=== PATIENT | male | born 1980 | race Caucasian/White ===

== ENCOUNTER 2020-01-09 14:27 | Outpatient (REF) | payer SELFPAY ==
[2020-01-12 20:33] LABS: SARS-CoV-2 RNA Undetected (Undetected); SARS-CoV-2 Specimen Source Nasal
== END 2020-01-09 14:47 ==
LOC: NCHCN 14:27
PROVIDERS: Visit Provider Family Medicine
DX: R05 Cough (principal); Z20.828 Contact with and (suspected) exposure to other viral communicable diseases
CPT/HCPCS: U0003

== ENCOUNTER 2021-09-17 14:12 | Outpatient (REF) | payer OTHER, SELFPAY ==
[2021-09-17 20:38] LABS: ALT 30 U/L (16-63); AST 20 U/L (15-37); Albumin 4.5 g/dL (3.4-5.0); Alkaline Phosphatase 67 U/L (46-116); Anion Gap 9.3 mmol/L (3-11); BUN 12 mg/dL (7-18); Bilirubin, Total 0.9 mg/dL (0.2-1.0); CO2 28.7 mmol/L (21.0-32.0); CREATININE 1.2 mg/dL (0.70-1.30); Calcium 9.4 mg/dL (8.5-10.1); Chloride 102 mmol/L (98-107); Glucose 88 mg/dL (74-106); Potassium 3.9 mmol/L (3.5-5.1); Sodium 140 mmol/L (136-145); Total Protein 7.5 g/dL (6.4-8.2)
== END 2021-09-17 14:13 | disposition home or self-care (01) ==
LOC: NCHCN 14:12
PROVIDERS: Visit Provider Family Medicine
DX: I10 Essential (primary) hypertension (principal); E66.9 Obesity, unspecified
CPT/HCPCS: 80053

== ENCOUNTER 2022-12-03 08:52 | Outpatient (REF) | payer SELFPAY ==
[2022-12-06 14:23] LABS: Helicobacter pylori Ag, Feces Negative (Negative)
== END 2022-12-03 08:53 | disposition home or self-care (01) ==
LOC: NCHCN 08:52
PROVIDERS: PCP Registered Nurse; Visit Provider Registered Nurse
DX: R10.13 Epigastric pain (principal)
CPT/HCPCS: 87338

== ENCOUNTER 2023-04-06 10:43 | Outpatient (REF) | payer OTHER, SELFPAY ==
--- OUTSIDE RECORDS SUMMARY | 2023-04-06 10:45 | XMS_ITS | CCD ---
Author Name Unknown Address [address] [place] [address] [id number] Organization Unknown Address [address], [place] [id number] Care Team Providers Care Progress Worker Name Role Phone DIONY LI Attending Physician [phone] REANNA MITTAL (Secondary) Physician [phone] Vital Signs Unknown or Not Available. Allergies Allergy Code Allergy Type Reaction Status No Known Allergies 0 No known allergies Active Procedures Unknown or Not Available. History of Immunizations Unknown or Not Available. Problems Unknown or Not Available. Results Unknown or Not Available. Active Medications Unknown or Not Available. Medications Administered During Visit Unknown or Not Available. Encounters Encounter Diagnosis Diagnosis Code Start Date Encounter for screening for malignant neoplasm o f colon Z1211 12/08/2021 Social History Smoking Status Code Start Date End Date Never smoker [id number] Patient Decision Aids Unknown or Not Available. Discharge Instructions You were admitted to [facility] on 12/08/2021 03:31 with a principal diagnosis of Encounter for screening for malignant neoplasm of colon You were discharged from [facility] on 12/08/2021 03:32 Should you have any questions prior to discharge, please contact a member of your healthcare team. If you have left the hospital and have any questions, please contact your primary care physician. Chief Complaint and Reason For Visit Unknown or Not Available. Function Status Unknown or Not Available. Plan of Care Unknown or Not Available. Referral/Transition of Care Unknown or Not Available.
--- OUTSIDE RECORDS SUMMARY | 2023-04-06 10:45 | XMS_ITS | CCD ---
Author Name Unknown Address [address] [place] [address] [phone] Organization Unknown Address [address] [place], [place] [id number] Care Team Providers Care Risk Specialist Name Role Phone MER SWANSON Attending Physician [phone] MER SWANSON Rounding (Secondary) Physician [phone] Vital Signs Unknown or Not Available. Allergies [...] Encounters Encounter Diagnosis Diagnosis Code Start Date Follow-up orthopedic assessment [id number] 12/25/2021 Social History Smoking Status Code Start Date End Date Never smoker [id number] Patient Decision Aids Unknown or Not Available. Discharge Instructions You were admitted to [facility] on 12/25/2021 07:45 with a principal diagnosis of Encounter for other orthopedic aftercare You were discharged from [facility] on 12/25/2021 00:00 Should you have any questions prior to [...]
--- OUTSIDE RECORDS SUMMARY | 2023-04-06 10:45 | XMS_ITS | CCD ---
Author Name Unknown Address [address] [place] [address] [phone] Organization Unknown Address [address] [place] [address] [phone] Care Team Providers Care Pattern Lease Inspector Name Role Phone KIA DICK Attending Physician [phone] Vital Signs Vital Sign Value Unit Date/Time Recent/Initial ? 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 Problems Unknown or Not Available. Results Unknown or Not Available. Active Medications Medications Administered During Visit Medication Dose Units Frequency Route Date/Time of Last Dose CEPHALEXIN CAPSULE: 500MG 1000 MG X1 PO 12/17/2021 07:00 ACETAMINOPHEN TABLET: 325MG 975 MG X1 PO 12/17/2021 06:52 CELECOXIB CAPSULE: 100MG 200 MG X1 PO 12/17/2021 06:51 Encounters Encounter Diagnosis Diagnosis Code Start Date Localized swelling, mass and lump, right upper l imb R2231 12/17/2021 Social History Smoking Status Code Start Date End Date Never smoker [id number] Patient Decision Aids Unknown or Not Available. Discharge Instructions You were admitted to [facility] on 12/17/2021 06:31 with a principal diagnosis of Localized swelling, mass and lump, right upper limb You had the following procedures done:Excision, Tumor, Soft Tissue/Vascular Malformation, Of Hand/Finger, Subfascial; 1.5 cm Or Greater You were discharged from [facility] on 12/17/2021 08:30 Should you have any questions prior to [...]
--- OUTSIDE RECORDS SUMMARY | 2023-04-06 10:46 | XMS_ITS | CCD ---
Author Name Unknown Address [address] [place] [address] [phone] Organization Unknown Address [address] [place] [address] [phone] Care Team Providers Care Product Sales Engineer Name Role Phone JENDIONY Attending Physician [phone] Vital Signs Vital Sign Value Unit Date/Time Recent/Initial ? BP Systolic 130 mmHg 12/08/2021 10:46 Initial VS BP Diastolic 83 mmHg 12/08/2021 10:46 Initia l VS Respiratory Rate 13 bpm 12/08/2021 10:46 In itial VS Heart Rate 64 bpm 12/08/2021 10:46 Initial VS BP Systolic 129 mmHg 12/08/2021 10:47 Most Re cent VS BP Diastolic 82 mmHg 12/08/2021 10:47 Most R ecent VS Respiratory Rate 12 bpm 12/08/2021 10:[address] Recent VS Heart Rate 66 bpm 12/08/2021 10:47 Most Rec ent VS O2 % BldC Oximetry 96 % 12/08/2021 10:47 Initial VS Allergies Allergy Code Allergy Type Reaction Status No Known Allergies 0 No known allergies Active Procedures Procedure Code Procedure Type Date Colsc Flx w/[place] [address] CPT 12/08/2021 History of Immunizations Unknown or Not Available. Problems Unknown or Not Available. Results Unknown or Not Available. Active Medications Unknown or Not Available. Medications Administered During Visit Unknown or Not Available. Encounters Encounter Diagnosis Diagnosis Code Start Date Encounter for screening for malignant neoplasm o f colon Z1211 12/08/2021 Social History Smoking Status Code Start Date End Date Never smoker [id number] Patient Decision Aids Unknown or Not Available. Discharge Instructions You were admitted to [facility] on 12/08/2021 09:00 with a principal diagnosis of Encounter for screening for malignant neoplasm of colon You had the following procedures done:Colsc Flx w/Rmvl Of Tumor Polyp Lesion Snare Tq You were discharged from [facility] on 12/08/2021 10:48 Should you have any questions prior to [...]
--- OUTSIDE RECORDS SUMMARY | 2023-04-06 10:46 | XMS_ITS | CCD ---
Author Name Unknown Address [address] [place] [address] [phone] Organization Unknown Address [address] [place] [address] [phone] Care Team Providers Care Lifter Driver Name Role Phone MER SWANSON Attending Physician [phone] MER SWANSON Rounding (Secondary) Physician [phone] Vital Signs Unknown or Not Available. Allergies [...] Encounter Diagnosis Diagnosis Code Start Date Localized swelling of right upper limb [id number] 11/27/2021 Social History Smoking Status Code Start Date End Date Never smoker [id number] Patient Decision Aids Unknown or Not Available. Discharge Instructions You were admitted to [facility] on 11/27/2021 15:33 with a principal diagnosis of Localized swelling, mass and lump, right upper limb You were discharged from [facility] on 11/27/2021 00:00 Should you have any questions prior [...]
--- OUTSIDE RECORDS SUMMARY | 2023-04-06 10:46 | XMS_ITS | CCD ---
Author Name Unknown Address [address] [place] [address] [phone] Organization Unknown Address [address] [place] [address] [phone] Care Team Providers Care Brusher Tender Name Role Phone KIA DICK Attending Physician [phone] Vital Signs Unknown or Not Available. Allergies Allergy Code Allergy Type Reaction Status No Known Allergies 0 No known allergies Active Procedures Unknown or Not Available. History of Immunizations Unknown or Not Available. Problems Unknown or Not Available. Results [facility]* - Jitendra ect Date/Time: 12/15/2021 09:38 Test Name Code Test Result Test Units Test Ref Rang e Tier- 01399-4 PRE-OP N/A SARS COV2 RNA: 19544-0 NEGATIVE N/A REFERENCE RANGE: NEGAT Active Medications Unknown or Not Available. Medications Administered During Visit Unknown or Not Available. Encounters Encounter Diagnosis Diagnosis Code Start Date Pre-surgery testing [id number] 12/15/2021 Social History Smoking Status Code Start Date End Date Never smoker [id number] Patient Decision Aids Unknown or Not Available. Discharge Instructions You were admitted to [facility] on 12/15/2021 16:39 with a principal diagnosis of Encounter for preprocedural laboratory examination You had the following tests done:BRICE COVID RHEONIX* You were discharged from [facility] on 12/15/2021 16:39 Should you have any questions prior to [...]
[2023-04-06 14:21] LABS: Abs Immature Grans 0.02 10^3/uL (0.0-0.06); Absolute Basophil Count 0.05 10^3/uL (0.0-0.2); Absolute Eosinophil Count 0.09 10^3/uL (0.0-0.7); Absolute Lymphocyte Count 1.37 10^3/uL (1.2-3.4); Absolute Monocyte Count 0.39 10^3/uL (0.1-0.8); Absolute Neutrophil Count 3.75 10^3/uL (1.2-6.7); Basophils % 0.9; Eosinophils % 1.6; HCT 44.8 % (40.0-50.0); HGB 15.8 g/dL (13.5-17.5); Immature Grans % 0.4; Lymphocytes % 24.2; MCH 31.8 pg (27.0-33.0); MCHC 35.3 % (32.0-36.0); MCV 90 fL (80-95); MPV 10.4 fL (8.0-11.0); Monocytes % 6.9; Platelet Count 256 10^3/uL (130-400); RBC 4.97 10^6/uL (4.36-5.78); RDW 12.3 % (11.8-14.1); RDW-SD 40.3 fL; WBC 5.67 10^3/uL (4.4-10.8)
[2023-04-06 14:38] LABS: ALT 19 U/L (16-63); AST 13 U/L (15-37); Albumin 4.1 g/dL (3.4-5.0); Alkaline Phosphatase 66 U/L (46-116); Anion Gap 2.7 mmol/L (3-11); BUN 12 mg/dL (7-18); Bilirubin, Total 1.1 mg/dL (0.2-1.0); C-Reactive Protein 0.06 mg/dL (0.0-0.3); CO2 31.3 mmol/L (21.0-32.0); CREATININE 1.2 mg/dL (0.70-1.30); Calcium 9.3 mg/dL (8.5-10.1); Calculated LDL 163 mg/dL (<100); Chloride 105 mmol/L (98-107); Cholesterol 224 mg/dL (<200); Estimated GFR 77.43 (mL/min/1.73m2); Glucose 91 mg/dL (74-106); HDL Cholesterol 48 mg/dL (40-60); Potassium 4.2 mmol/L (3.5-5.1); Sodium 139 mmol/L (136-145); TSH (W/Ref FT4) 1.68 uIU/mL (0.36-3.74); Total Protein 7.3 g/dL (6.4-8.2); Triglyceride 68 mg/dL (<150)
[2023-04-07 09:46] LABS: HIV-1/2 Ag & Ab Screen Negative (Negative)
== END 2023-04-06 10:44 | disposition home or self-care (01) ==
LOC: NCHCN 10:43
PROVIDERS: PCP Registered Nurse; Visit Provider Family Medicine
DX: R63.4 Abnormal weight loss (principal); Z00.00 Encounter for general adult medical examination without abnormal findings
CPT/HCPCS: 80053; 80061; 87389; 83036; 84443; 85025; 86140

== ENCOUNTER 2023-08-11 17:42 | Outpatient (REF) | payer OTHER, SELFPAY ==
[2023-08-13 13:47] LABS: Chlamydia Result Negative (Negative); GC Result Negative (Negative)
== END 2023-08-11 17:43 | disposition home or self-care (01) ==
LOC: NCHCN 17:42
PROVIDERS: PCP Registered Nurse; Visit Provider Family Medicine
DX: R30.0 Dysuria (principal)
CPT/HCPCS: 87491; 87591

== ENCOUNTER 2024-10-03 13:51 | Outpatient (REF) | payer OTHER, SELFPAY ==
[2024-10-03 15:48] LABS: ALT 29 U/L (16-63); AST 21 U/L (15-37); Albumin 4.3 g/dL (3.4-5.0); Alkaline Phosphatase 63 U/L (46-116); Anion Gap 5.3 mmol/L (3-11); BUN 17 mg/dL (7-18); Bilirubin, Total 1.0 mg/dL (0.2-1.0); CO2 31.7 mmol/L (21.0-32.0); Calcium 9.3 mg/dL (8.5-10.1); Calculated LDL 178 mg/dL (<100); Chloride 105 mmol/L (98-107); Cholesterol 243 mg/dL (<200); Estimated GFR 85.42 (mL/min/1.73m2); Glucose 95 mg/dL (74-106); HDL Cholesterol 49 mg/dL (>or=40); Potassium 4.0 mmol/L (3.5-5.1); Sodium 142 mmol/L (136-145); Total Protein 7.3 g/dL (6.4-8.2); Triglyceride 82 mg/dL (<150)
== END 2024-10-03 13:52 | disposition home or self-care (01) ==
LOC: NCHCN 13:51
PROVIDERS: PCP Registered Nurse; Visit Provider Family Medicine
DX: E78.5 Hyperlipidemia, unspecified (principal); I10 Essential (primary) hypertension
CPT/HCPCS: 80053; 80061

== ENCOUNTER 2024-10-09 16:46 | Outpatient (REF) | payer OTHER, SELFPAY ==
[2024-10-10 09:30] LABS: Hepatitis C Ab w Rflx HCV PCR Negative (Negative)
[2024-10-10 09:34] LABS: HIV-1/2 Ag & Ab Screen Negative (Negative)
[2024-10-10 12:06] LABS: Syphilis Serology (RPR) Negative (Negative)
[2024-10-10 12:26] LABS: Chlamydia Result Negative (Negative); GC Result Negative (Negative)
== END 2024-10-09 16:47 | disposition home or self-care (01) ==
LOC: NCHCN 16:46
PROVIDERS: PCP Registered Nurse; Visit Provider Family Medicine
DX: Z00.00 Encounter for general adult medical examination without abnormal findings (principal); Z11.3 Encounter for screening for infections with a predominantly sexual mode of transmission
CPT/HCPCS: 86803; 87389; 87491; 87591; 86592